=== PATIENT | male | born 1995 | race Hispanic/Latino ===

== ENCOUNTER 2017-04-10 14:06 | Emergency (ER) | payer OTHER ==
[2017-04-10 14:36] VITALS: TEMP 98.4
--- NOTE | 2017-04-10 16:01 | ED PDOC ---
Arrival/HPI - General Chief Complaint: Abdominal Pain Time Seen by Provider: 04/10/17 15:56 Historian: Patient - History of Present Illness Narrative History of Present Illness (Text): 04/10/17 15:58 Carlton Hooper is a 21 year old male, who denies any past medical history, presents to the emergency department complaining of left lower rib pain for the last month and upper abdominal discomfort for a few days. Patient describes his rib pain to be intermittent and non-pruritic. Denies cp/sob/duggan. Patient denies any nausea, vomiting, diarrhea, or any other complaints at this time. PMD: Dr. Higginbotham Time/Duration: < week Symptom Onset: Gradual Symptom Course: Unchanged Context: Home Past Medical History - Provider Review Nursing Documentation Reviewed: Yes - Infectious Disease Hx of Infectious Diseases: None - Hematological/Oncological Hx Blood Disorders: No - Psychiatric Hx Substance Use: No - Anesthesia Hx Anesthesia: No Hx Anesthesia Reactions: No Hx Malignant Hyperthermia: No Family/Social History - Physician Review Nursing Documentation Reviewed: Yes Family/Social History: No Known Family HX Smoking Status: Current Some Days Smoker Hx Alcohol Use: No Hx Substance Use: No Allergies/Home Meds Allergies/Adverse Reactions: Allergies No Known Allergies Allergy (Verified 04/10/17 14:36) Home Medications: Home Meds Medication Instructions Recorded Confirmed No Known Home Med 04/10/17 04/10/17 Physical Exam - Physical Exam Narrative Physical Exam (Text): - Review of Systems Constitutional: Normal. absent: Fatigue, Weight Change, Fevers Eyes: Normal ENT: Normal Respiratory: Normal absent: SOB, Cough, Sputum Cardiovascular: Left lower rib pain. absent: Palpitations, Syncope Gastrointestinal: Upper abdominal discomfort. absent: Diarrhea, Nausea, Vomiting Genitourinary: Normal. absent: Dysuria, Frequency, Hematuria Musculoskeletal: Normal. absent: Arthralgias, Back Pain, Neck Pain Skin: Normal Neurological: Normal absent: Focal Weakness Endocrine: Normal Hemo/Lymphatic: Normal Psychiatric: Normal - Physical exam Patient appears age appropriate, speaking full sentences without difficulty - Systems Exam Head: Present: Atraumatic, Normocephalic Pupils: Present: PERRL Extraocular Muscles: Present: EOMI Conjunctiva: Present: Normal Mouth: Present: Moist Mucous Membranes Neck: Present: Normal Range of Motion. No: MIDLINE TENDERNESS, Paraspinal Tenderness Respiratory/Chest: Present: Clear to Auscultation, Good Air Exchange. No: Respiratory Distress, Accessory Muscle Use, Tachypnic Cardiovascular: Present: Regular Rate and Rhythm, Normal S1, S2, Peripheral Pulses Present. No: Murmurs Abdomen: Present: Normal Bowel Sounds, No: Tenderness, Peritoneal Signs, Rebound, Guarding, Distention Back: Present: Normal Inspection. No: Midline Tenderness, Paraspinal Tenderness Upper Extremity: Present: Normal Inspection. No: Cyanosis, Edema Lower Extremity: Present: Normal Inspection. No: Edema Neurological: Present: GCS=15, Speech Normal, cranial nerves II through XII fully intact with no cerebellar abnormality, neuro-sensory fully intact. No focal neurological deficits. Skin: Present: Warm, Dry, Normal Color. No: Rashes Lymphatic: Present: OX3, NI, NC Psychiatric: Present: Alert, Oriented x 3, Normal Insight, Normal Concentration Vital Signs Reviewed: Yes Vital Signs Temp Pulse Resp BP Pulse Ox 04/10/17 14:28 98.4 F 79 18 137/84 99 Temperature: Afebrile Blood Pressure: Normal Pulse: Regular Respiratory Rate: Normal Appearance: Positive for: Well-Appearing, Non-Toxic, Comfortable Pain Distress: None Mental Status: Positive for: Alert and Oriented X 3 Medical Decision Making ED Course and Treatment: 04/10/17 15:58 Impression: 21 year old male complaining of left lower rib pain and upper abdominal discomfort. No acute findings on physical examination Plan: -- EKG -- Abdomen and Pelvis CT w/ IV contrast -- Urinalysis -- Labs -- Reassess and disposition Progress Notes: EKG shows NSR at [address]-segment elevations, normal intervals. Interpreted by me. Diagnosis of PE considered, pt is PERC negative On reevaluation, patient reports that she feels much better and would like to be discharged home. Patient's repeat abdominal exam is soft, nontender, non distended with positive bowel sounds in all 4 quadrants and no peritoneal signs. Patient is tolerating PO without any difficulty. Pt states he understands to return to the ER right away for new or worsening symptoms or for inability to f/u with PMD or specialist as instructed. Patient states that he fully agrees with and understands discharge instructions. States that he agrees with the plan and disposition. Verbalized and repeated discharge instructions and plan. I have given the patient opportunity to ask any additional questions. 04/10/17 18:27 CT Abdomen and Pelvis with contrast: Creator : Felton LAINEZ FINDINGS: LOWER THORAX:No visible consolidation, pleural effusion, or pneumothorax. LIVER:Unremarkable. GALLBLADDER AND BILE DUCTS:Unremarkable. PANCREAS:Unremarkable. SPLEEN:Unremarkable. ADRENALS:Unremarkable. KIDNEYS AND URETERS:The kidneys enhance symmetrically. No hydronephrosis or obstructing calculus identified. VASCULATURE:No aortic aneurysm. BOWEL:Stomach is nondistended. Lack of oral contrast limits evaluation for bowel pathology. Bowel loops appear within normal limits of caliber without evidence of obstruction. APPENDIX:The appendix appears within normal limits of caliber. No secondary signs of acute appendicitis. PERITONEUM:No significant free fluid. No definite free air. LYMPH NODES:No bulky adenopathy identified. BLADDER:Unremarkable. REPRODUCTIVE:Unremarkable. BONES:No acute osseous abnormality is detected. OTHER FINDINGS:None. IMPRESSION: No acute findings. - Lab Interpretations Lab Results: 04/10/17 16:35 04/10/17 16:35 Lab Results 04/10/17 16:35: Sodium 141, Potassium 4.1, Chloride 102, Carbon Dioxide 27, Anion Gap 16, BUN 13, Creatinine 0.9, Est GFR ( Amer) > 60, Est GFR (Non- Af Amer) > 60, Random Glucose 97, Calcium 9.8, Total Bilirubin 0.5, AST 35, ALT 39, Alkaline Phosphatase 39, Total Protein 7.2, Albumin 4.8, Globulin 2.4, Albumin/Globulin Ratio 2.0 H 04/10/17 16:35: PT 10.8, INR 1.00, APTT 25.2 04/10/17 16:35: WBC 7.9, RBC 4.82, Hgb 14.6, Hct 41.6 L, MCV 86.3, MCH 30.3, MCHC 35.1, RDW 12.0, Plt Count 182, MPV 9.2, Gran % 61.6, Lymph % (Auto) 27.2, Gregory % (Auto) 9.0 H, Eos % (Auto) 1.9, Baso % (Auto) 0.3, Gran # 4.86, Lymph # 2.1, Gregory # 0.7 H, Eos # 0.2, Baso # 0.02 I have reviewed the lab results: Yes - RAD Interpretation Radiology Orders: 04/10/17 15:56 ABD & PELVIS IV CONTRAST ONLY [CT] Stat 04/10/17 15:58 CHEST PORTABLE [RAD] Stat - Medication Orders Current Medication Orders: Discontinued Medications Iohexol (Omnipaque 350 100 Ml) Confirm Administered Dose 350 mg .ROUTE .STK-MED ONE Stop: 04/10/17 17:19 Ketorolac Tromethamine (Toradol) 30 mg IVP STAT STA Stop: 04/10/17 15:57 Last Admin: 04/10/17 16:39 Dose: 30 mg - Scribe Statement The provider has reviewed the documentation as recorded by the Luna Bennett Provider Scribe Attestation: All medical record entries made by the Luna were at my direction and personally dictated by me. I have reviewed the chart and agree that the record accurately reflects my personal performance of the history, physical exam, medical decision making, and the department course for this patient. I have also personally directed, reviewed, and agree with the discharge instructions and disposition. Disposition/Present on Arrival - Present on Arrival Any Indicators Present on Arrival: No History of DVT/PE: No History of Uncontrolled Diabetes: No Urinary Catheter: No History of Decub. Ulcer: No History Surgical Site Infection Following: None - Disposition Have Diagnosis and Disposition been Completed?: Yes Diagnosis: Abdominal pain Disposition: HOME/ ROUTINE Disposition Time: 18:25 Patient Plan: Discharge Patient Problems: Current Active Problems Problem Status Onset Abdominal pain Acute Discharge Instructions (ExitCare): Abdominal Pain (ED) Additional Instructions: PLEASE RETURN TO THE EMERGENCY DEPARTMENT FOR NEW OR WORSENING SYMPTOMS. RETURN RIGHT AWAY IF YOU CANNOT FOLLOW UP WITH YOUR PRIMARY CARE DOCTOR, CLINIC, OR SPECIALIST IN 1-2 DAYS. Please take [id number] Motrin or Tylenol Referrals: Monico Higginbotham MD [Primary Care Provider] - Follow up with primary Forms: OLX (Kazakh)
--- NOTE | 2017-04-10 16:15 | RAD ---
HISTORY: cough COMPARISON: No prior. FINDINGS: LUNGS: No active pulmonary disease. PLEURA: No significant pleural effusion identified, no pneumothorax apparent. CARDIOVASCULAR: Normal. OSSEOUS STRUCTURES: No significant abnormalities. VISUALIZED UPPER ABDOMEN: Normal. OTHER FINDINGS: None. IMPRESSION: No active disease.
[2017-04-10 16:42] LABS: BASO # 0.02 K/mm3 (0.0-2.0); BASO % 0.3 % (0.0-3.0); EOS # 0.2 (0.0-0.7); EOS % 1.9 % (1.5-5.0); GRAN # 4.86 (1.4-6.5); GRAN % 61.6 % (50.0-68.0); HEMOGLOBIN 14.6 g/dL (14.0-18.0); LYMPH # 2.1 (1.2-3.4); LYMPH % 27.2 % (22.0-35.0); MEAN CELL VOLUME 86.3 fl (80.0-105.0); MEAN CORPUSCULAR HEMOGLOBIN 30.3 pg (25.0-35.0); MEAN CORPUSCULAR HGB CONC 35.1 g/dl (31.0-37.0); MEAN PLATELET VOLUME 9.2 fl (7.0-11.0); MONO # 0.7 (0.1-0.6); PLATELET COUNT 182 10^3/uL (120.0-450.0); RBC 4.82 10^6/uL (3.5-6.1); WHITE BLOOD COUNT 7.9 10^3/ul (4.5-11.0)
[2017-04-10 16:54] LABS: ALBUMIN 4.8 g/dL (3.0-4.8); ALT/SGPT 39 U/L (7-56); AST/SGOT 35 U/L (15-59); BLOOD UREA NITROGEN 13 mg/dL (7-21); CALCIUM 9.8 mg/dL (8.4-10.5); GFR AFRICAN-AMERICAN > 60; GFR NON-AFRICAN AMERICAN > 60
[2017-04-10 16:55] LABS: PARTIAL THROMBOPLASTIN TIME 25.2 Seconds (23.7-30.8); PROTHROMBIN TIME 10.8 Seconds (9.9-11.8)
[2017-04-10] MEDS ORDERED: Iohexol 350 MG/100 ML VIAL ONE (17:18)
--- NOTE | 2017-04-10 18:07 | CT ---
PROCEDURE: CT Abdomen and Pelvis with contrast HISTORY: abd pain COMPARISON: None available. TECHNIQUE: Contrast dose: 100 cc Omnipaque 350 Radiation dose: Total exam DLP = 436.35 mGy-cm. This CT exam was performed using one or more of the following dose reduction techniques: Automated exposure control, adjustment of the mA and/or kV according to patient size, and/or use of iterative reconstruction technique. FINDINGS: LOWER THORAX: No visible consolidation, pleural effusion, or pneumothorax. LIVER: Unremarkable. GALLBLADDER AND BILE DUCTS: Unremarkable. PANCREAS: Unremarkable. SPLEEN: Unremarkable. ADRENALS: Unremarkable. KIDNEYS AND URETERS: The kidneys enhance symmetrically. No hydronephrosis or obstructing calculus identified. VASCULATURE: No aortic aneurysm. BOWEL: Stomach is nondistended. Lack of oral contrast limits evaluation for bowel pathology. Bowel loops appear within normal limits of caliber without evidence of obstruction. APPENDIX: The appendix appears within normal limits of caliber. No secondary signs of acute appendicitis. PERITONEUM: No significant free fluid. No definite free air. LYMPH NODES: No bulky adenopathy identified. BLADDER: Unremarkable. REPRODUCTIVE: Unremarkable. BONES: No acute osseous abnormality is detected. OTHER FINDINGS: None. IMPRESSION: No acute findings.
--- NOTE | 2017-04-10 19:08 | CARD ---
APPROVED REPORT EKG Measurement Heart [id number] <Conclusion> Normal sinus rhythm Normal ECG
[2017-04-10 20:00] VITALS: PULSE 80
[2017-04-10 20:01] VITALS: BP 138/69; RESP 18; O2SAT 98
== END 2017-04-10 19:20 | disposition home or self-care (01) ==
LOC: ED 14:06
DX: R10.9 Unspecified abdominal pain (principal)
CPT/HCPCS: 71010; 74177; 80053; 85025; 85610; 85730; 93005; 96374; 99283; J1885; Q9967